=== PATIENT | female | born 1990 | race Caucasian/White ===

== ENCOUNTER 2017-12-23 06:49 | Day surgery (SDC) | payer BC ==
[~2017-12-23 06:49] MED LIST: CEFAZOLIN 2 GM/50 ML (PMX) 50 ML IVPB; SOD CHLORIDE 0.9% 1,000 ML IV
[2017-12-23] MEDS ORDERED: PROPOFOL 200 MG INJ (07:00)
[2017-12-23] MEDS ORDERED: SUCCINYLCHOLINE CHLORIDE 100 MG/5 ML SYG IV (07:00)
[2017-12-23] MEDS ORDERED: ROCURONIUM 50 MG INJ (09:14)
[2017-12-23] MEDS ORDERED: GLYCOPYRROLATE 0.4 MG INJ (09:14)
[2017-12-23] MEDS ORDERED: PROPOFOL 20 ML (09:14)
[2017-12-23] MEDS ORDERED: LIDOCAINE 2% (SDV) 5 ML INJ (09:14)
[2017-12-23] MEDS ORDERED: MIDAZOLAM 1 MG/ML 2 ML INJ (09:14)
[2017-12-23] MEDS ORDERED: NEOSTIGMINE 3 MG/3 ML SYRINGE (09:14)
[2017-12-23] MEDS ORDERED: DEXAMETHASONE 4 MG/ML 1 ML INJ (09:15)
[2017-12-23] MEDS ORDERED: ONDANSETRON 4 MG INJ (09:15)
[2017-12-23] MEDS ORDERED: FENTAnyl 50 MCG/ML VIAL (09:15)
[2017-12-23] MEDS ORDERED: FENTAnyl 50 MCG/ML VIAL IV ×2 (09:30)
[2017-12-23] MEDS ORDERED: MIDAZOLAM 1 MG/ML 2 ML INJ IV (09:30)
[2017-12-23] MEDS ORDERED: OXYCODONE/ACETAMINOPHEN (5/325) TAB PO (09:30)
[2017-12-23] MEDS ORDERED: ONDANSETRON 4 MG INJ IV (09:30)
[2017-12-23] MEDS ORDERED: MEPERIDINE 25 MG INJ IV (09:30)
[2017-12-23] MEDS ORDERED: HYDROmorphONE 1 MG/5 ML IV SYRINGE IV ×2 (09:30)
[2017-12-23] MEDS ORDERED: morphine (1 MG/ML) 10ML SYRINGE IV ×3 (09:30)
[2017-12-23] MEDS ORDERED: DIPHENHYDRAMINE 50 MG INJ IV (09:30)
[2017-12-23] MEDS ORDERED: hydrALAzine 20 MG INJ IV (09:30)
[2017-12-23] MEDS ORDERED: ATROPINE 1 MG/10 ML SYRINGE IV (09:30)
[2017-12-23] MEDS ORDERED: EPHEDrine SULFATE 50 MG/5 ML SYG IV (09:30)
[2017-12-23] MEDS ORDERED: LABETALOL HCL 20MG INJ IV (09:30)
[2017-12-23] MEDS ORDERED: CEFAZOLIN 1 GM INJ (10:35)
[2017-12-23] MEDS: HYDROmorphONE 1 MG/5 ML IV SYRINGE IV (11:26)
[2017-12-23] MEDS: OXYCODONE/ACETAMINOPHEN (5/325) TAB PO (13:02)
== END 2017-12-23 14:35 | disposition home or self-care (01) ==
LOC: SDS 06:49
DX: K42.9 Umbilical hernia without obstruction or gangrene (principal); I10 Essential (primary) hypertension; J45.909 Unspecified asthma, uncomplicated
CPT/HCPCS: 49585; 84703; 88302